=== PATIENT | male | born 1990 | race American Indian/Alaskan Native ===

== ENCOUNTER 2019-02-15 10:18 | Emergency (ER) | payer SELFPAY ==
[2019-02-15] MEDS ORDERED: ZOFRAN IV ONE (10:46)
[2019-02-15] MEDS ORDERED: PEPCID IV ONE (10:46)
[2019-02-15] MEDS ORDERED: NACL 0.9% 1000 ML 1,000 ML IV ONE ×2 (10:46→10:55)
[2019-02-15 10:51] LABS: Basophils % (Auto) 0.4 % (0.0-1.8); Eosinophils # (Auto) 0.1 K/mm3 (0.0-0.4); Eosinophils % (Auto) 0.8 % (0.0-4.3); Hematocrit 45.9 % (35.5-45.6); Hemoglobin 15.3 gm/dl (11.8-15.2); Lymphocytes # (Auto) 1.7 K/mm3 (1.2-5.4); Lymphocytes % (Auto) 19.2 % (13.4-35.0); Mean Corpuscular HGB Conc 33 % (32-34); Mean Corpuscular Volume 80 fl (84-94); Monocytes # (Auto) 0.6 K/mm3 (0.0-0.8); Monocytes % (Auto) 6.2 % (0.0-7.3); Platelet Count 298 K/mm3 (140-440); Red Cell Distribution Width 14.5 % (13.2-15.2)
--- NOTE | 2019-02-15 10:51 | Emergency Department Report ---
HPI - General Chief Complaint: Abdominal Pain Time Seen by Provider: 02/15/19 10:39 - HPI HPI: Room 5 The patient is a 28-year-old male presenting with chief complaint of nausea vomiting. Patient states the past 2-3 days he's had intractable nausea and vomiting. Patient states he's been unable to eat secondary to the nausea and vomiting. The patient states last night he noticed blood-tinged vomitus. Patient denies diarrhea or fever. Patient denies dysuria or sick contacts. The patient states he cannot recall the last thing he had eaten before his symptoms began Location: [See above] Duration: [See above] Quality: [See above] Severity: [See above] Modifying factors: [see above] Context: [see above] Mode of transportation: [not driving] ED Past Medical Hx - Past Medical History Previous Medical History?: No - Surgical History Past Surgical History?: No - Family History Family history: no significant - Social History Smoking Status: Current Every Day Smoker (Black and mild) Substance Use Type: None (denies illicit drug use) - Medications Home Medications: Home Medications Medication Instructions Recorded Confirmed Last Taken Type Metoclopramide [Reglan] 10 mg PO QID PRN #30 tab 02/15/19 Unknown Rx Promethazine [Phenergan] 25 mg [place] Q6HR PRN #5 supp.rect 02/15/19 Unknown Rx ED Review of Systems ROS: Stated complaint: STOMACH PAIN Other details as noted in HPI Constitutional: denies: fever Eyes: denies: eye pain ENT: denies: throat pain Respiratory: no symptoms reported Cardiovascular: denies: chest pain Endocrine: no symptoms reported Gastrointestinal: abdominal pain (soreness), nausea, vomiting. denies: diarrhea Genitourinary: denies: dysuria Musculoskeletal: denies: back pain Neurological: denies: headache Physical Exam - Physical Exam Vital Signs: Vital Signs 02/15/19 10:23 Temperature 98.4 F Pulse Rate 57 L Respiratory 18 Rate Blood Pressure 154/88 O2 Sat by Pulse 96 Oximetry Physical Exam: GENERAL: The patient is well-developed well-nourished male lying on stretcher not appearing to be in acute distress. [] HEENT: Normocephalic. Atraumatic. Extraocular motions are intact. Patient has moist mucous membranes. NECK: Supple. No meningitic signs are noted. Trachea midline CHEST/LUNGS: Clear to auscultation. There is no respiratory distress noted. HEART/CARDIOVASCULAR: Regular. There is no tachycardia. There is no gallop rub or murmur. ABDOMEN: Abdomen is soft, nontender. Patient has normal bowel sounds. There is no abdominal distention. SKIN: There is no rash. There is no edema. There is no diaphoresis. NEURO: The patient is awake, alert, and oriented. The patient is cooperative. The patient has normal speech and gait. MUSCULOSKELETAL: There is no evidence of acute injury. ED Course Vital Signs 02/15/19 10:23 Temperature 98.4 F Pulse Rate 57 L Respiratory 18 Rate Blood Pressure 154/88 O2 Sat by Pulse 96 Oximetry - Reevaluation(s) Reevaluation #1: 02/15/19 12:26 Patient states he still feels nauseous. Will administer Reglan Reevaluation #2: 02/15/19 13:22 Patient states nausea is improved status post Reglan. Will administer po challe nge Reevaluation #3: 02/15/19 13:50 Patient tolerating po and states he feels better ED Medical Decision Making - Lab Data Result diagrams: 02/15/19 10:39 02/15/19 10:39 - Differential Diagnosis gastroenteritis, small bowel obstruction, Critical care attestation.: If time is entered above; I have spent that time in minutes in the direct care of this critically ill patient, excluding procedure time. ED Disposition Clinical Impression: Nausea & vomiting, Dehydration Disposition: DC-01 TO HOME OR SELFCARE Is pt being admited?: No Does the pt Need Aspirin: No Condition: Stable Instructions: Acute Nausea and Vomiting (ED) Additional Instructions: Return to the emergency department immediately should you develop worsening symptoms, fever, inability to tolerate food or liquid or any other concerns. Prescriptions: Promethazine [Phenergan] 25 mg HI Q6HR PRN #5 supp.rect PRN Reason: Vomiting Metoclopramide [Reglan] 10 mg PO QID PRN #30 tab PRN Reason: Nausea Referrals: [facility] [Outside] - 3-5 Days DAKOTA LINO MD [Staff Physician] - 3-5 Days (Dr. Lino is a gastro enterologist. Please follow up with him for further evaluation) Time of Disposition: 13:52
[2019-02-15 11:13] LABS: BUN/Creatinine Ratio 7; Blood Urea Nitrogen 9 mg/dL (9-20); Calcium 9.8 mg/dL (8.4-10.2); Hemolysis Index 21
--- NOTE | 2019-02-15 12:19 | Cat Scan Report ---
CT ABDOMEN AND PELVIS WITH CONTRAST INDICATION / CLINICAL INFORMATION: intractable nausea and vomiting. TECHNIQUE: Axial CT images were obtained through the abdomen and pelvis after IV contrast. All CT scans at this location are performed using CT dose reduction for ALARA by means of automated exposure control. COMPARISON: None available. FINDINGS: LOWER CHEST: No significant abnormality. LIVER: No significant abnormality. GALLBLADDER: No significant abnormality. BILE DUCTS: No significant abnormality. PANCREAS: No significant abnormality. SPLEEN: No significant abnormality. ADRENALS: No significant abnormality. RIGHT KIDNEY and URETER: No significant abnormality. LEFT KIDNEY and URETER: No significant abnormality. STOMACH and SMALL BOWEL: No significant abnormality. COLON: No significant abnormality. APPENDIX: No significant abnormality. PERITONEUM: No free fluid. No free air. No fluid collection. LYMPH NODES: No significant adenopathy. AORTA and ARTERIES: No significant abnormality. IVC and VEINS: No significant abnormality. URINARY BLADDER: No significant abnormality. REPRODUCTIVE ORGANS: No significant abnormality. ADDITIONAL FINDINGS: None. SKELETAL SYSTEM: No significant abnormality. IMPRESSION: 1. No significant abnormality. Signer Name: Hola Mendieta MD Signed: 02/15/2019 12:14 PM Workstation Name: [id number]
[2019-02-15] MEDS ORDERED: REGLAN IV ONE (12:25)
[2019-02-15 14:28] VITALS: BP 112/56
== END 2019-02-15 14:45 | disposition home or self-care (01) ==
LOC: ED 10:18
DX: E86.0 Dehydration (principal); F17.200 Nicotine dependence, unspecified, uncomplicated; R10.9 Unspecified abdominal pain
CPT/HCPCS: 36415; 74177; 80048; 83690; 85025; 96361; 96374; 96375; 99284; J2405; J2765; J7030; Q9967

== ENCOUNTER 2019-02-16 13:04 | Emergency (ER) | payer SELFPAY ==
[2019-02-16 13:19] VITALS: BP 152/85
[2019-02-16 13:46] LABS: Basophils % (Auto) 0.3 % (0.0-1.8); Eosinophils # (Auto) 0.1 K/mm3 (0.0-0.4); Eosinophils % (Auto) 1.2 % (0.0-4.3); Hematocrit 44.4 % (35.5-45.6); Hemoglobin 14.7 gm/dl (11.8-15.2); Lymphocytes # (Auto) 1.9 K/mm3 (1.2-5.4); Lymphocytes % (Auto) 20.2 % (13.4-35.0); Mean Corpuscular HGB Conc 33 % (32-34); Mean Corpuscular Volume 81 fl (84-94); Monocytes # (Auto) 0.7 K/mm3 (0.0-0.8); Monocytes % (Auto) 7.2 % (0.0-7.3); Platelet Count 274 K/mm3 (140-440); Red Blood Count 5.48 M/mm3 (3.65-5.03)
[2019-02-16 13:51] LABS: Bilirubin,Urine NEG (Negative); Blood,Urine NEG (Negative); Color,Urine Amber (Yellow); Mucus,Urine 3+ /HPF
[2019-02-16 13:59] LABS: Alanine Aminotransferase 21 units/L (7-56); Albumin 4.7 g/dL (3.9-5); BUN/Creatinine Ratio 7; Blood Urea Nitrogen 9 mg/dL (9-20); Calcium 9.3 mg/dL (8.4-10.2); Hemolysis Index 7
[2019-02-16] MEDS ORDERED: ZOFRAN IV ONE ×2 (15:43→17:03)
[2019-02-16] MEDS ORDERED: PEPCID IV ONE (15:43)
[2019-02-16] MEDS ORDERED: NACL 0.9% 1000 ML 1,000 ML IV ONE (15:44)
--- NOTE | 2019-02-16 15:49 | Emergency Department Report ---
ED Abdominal Pain HPI - General Chief Complaint: Abdominal Pain Stated Complaint: ABD PAIN Time Seen by Provider: 02/16/19 15:43 Source: patient Mode of arrival: Ambulatory Limitations: No Limitations - History of Present Illness Initial Comments: Mr. Alvarez is a healthy 28-year-old male who is a daily marijuana and tobacco use who presents with heartburn; said nausea and vomiting for 4 days. He was evaluated in our emergency department last night for similar symptoms. Continues to have acid-like illness. Denies fever. Denies concomitant sympto msLiliam CRESPO Complaint: abdominal pain -: Gradual Radiation: chest Severity: moderate Quality: burning Consistency: constant Improves With: nothing Worsens With: nothing Associated Symptoms: nausea, vomiting - Related Data Previous Rx's Medication Instructions Recorded Last Taken Type Metoclopramide [Reglan] 10 mg PO QID PRN #30 tab 02/15/19 Unknown Rx Promethazine [Phenergan] 25 mg [place] Q6HR PRN #5 supp.rect 02/15/19 Unknown Rx Famotidine [Pepcid] 20 mg PO BID 30 Days #60 tablet 02/16/19 Unknown Rx Allergies Allergy/AdvReac Type Severity Reaction Status Date / Time No Known Allergies Allergy Unverified 02/15/19 10:23 ED Review of Systems ROS: Stated complaint: ABD PAIN Other details as noted in HPI Comment: All other systems reviewed and negative Constitutional: denies: fever, malaise Cardiovascular: chest pain Gastrointestinal: abdominal pain ED Past Medical Hx - Past Medical History Previous Medical History?: No - Surgical History Past Surgical History?: No - Social History Smoking Status: Current Every Day Smoker Substance Use Type: Alcohol, Marijuana - Medications Home Medications: Home Medications Medication Instructions Recorded Confirmed Last Taken Type Metoclopramide [Reglan] 10 mg PO QID PRN #30 tab 02/15/19 Unknown Rx Promethazine [Phenergan] 25 mg [place] Q6HR PRN #5 supp.rect 02/15/19 Unknown Rx Famotidine [Pepcid] 20 mg PO BID 30 Days #60 tablet 02/16/19 Unknown Rx ED Physical Exam - General Limitations: No Limitations General appearance: alert, in no apparent distress - Head Head exam: Present: atraumatic, normocephalic - Eye Eye exam: Present: normal appearance - ENT ENT exam: Present: mucous membranes moist - Neck Neck exam: Present: normal inspection, full ROM - Respiratory Respiratory exam: Present: normal lung sounds bilaterally. Absent: respiratory distress - Cardiovascular Cardiovascular Exam: Present: regular rate, normal rhythm, normal heart sounds. Absent: systolic murmur, diastolic murmur, rubs, gallop - GI/Abdominal GI/Abdominal exam: Present: soft, normal bowel sounds. Absent: distended, tenderness, guarding, rebound - Rectal Rectal exam: Present: deferred - Extremities Exam Extremities exam: Present: normal inspection - Back Exam Back exam: Present: normal inspection - Neurological Exam Neurological exam: Present: alert, oriented X3 - Psychiatric Psychiatric exam: Present: normal affect, normal mood - Skin Skin exam: Present: warm, dry, intact, normal color. Absent: rash ED Course Vital Signs 02/16/19 13:17 Temperature 98.4 F Pulse Rate 54 L Respiratory 18 Rate Blood Pressure 152/85 O2 Sat by Pulse 100 Oximetry ED Medical Decision Making - Lab Data Result diagrams: 02/16/19 13:25 02/16/19 13:25 - Medical Decision Making Mr. Alba presents with heartburn and stomach upset: Dehydration with GI fluid loss observed with with increased specific gravity on urinalysis and hypokalemia hypochloremia. CBC chemistry otherwise unremarkable. Diagnosis GERD, and abdomen no hyperemesis syndrome Prescribed famotidine in addition to prescriptions received last night. Receiv ed IV fluid and IV famotidine IV anti-emetic in ED Last night prescribed Reglan and Phenergan suppositories. Critical care attestation.: If time is entered above; I have spent that time in minutes in the direct care of this critically ill patient, excluding procedure time. ED Disposition Clinical Impression: Cannabinoid hyperemesis syndrome, GERD (gastroesophageal reflux disease) Disposition: - TO HOME OR SELFCARE Is pt being admited?: No Does the pt Need Aspirin: No Condition: Stable Prescriptions: Famotidine [Pepcid] 20 mg PO BID 30 Days #60 tablet Referrals: DAKOTA LEDEZMA MD [Staff Physician] - 3-5 Days Forms: Work/School Release Form(ED)
== END 2019-02-16 18:03 | disposition home or self-care (01) ==
LOC: ED 13:04
DX: K21.0 Gastro-esophageal reflux disease with esophagitis (principal); F12.188 Cannabis abuse with other cannabis-induced disorder; F17.200 Nicotine dependence, unspecified, uncomplicated; Z79.899 Other long term (current) drug therapy
CPT/HCPCS: 36415; 80053; 81001; 83690; 85025; 96374; 96375; 96376; 99283; J2405; J7030

== ENCOUNTER 2019-12-16 11:00 | Emergency (ER) | payer SELFPAY ==
[2019-12-16 13:00] LABS: Basophils % (Auto) 0.4 % (0.0-1.8); Eosinophils # (Auto) 0.1 K/mm3 (0.0-0.4); Eosinophils % (Auto) 1.7 % (0.0-4.3); Hematocrit 49.5 % (35.5-45.6); Hemoglobin 16.1 gm/dl (11.8-15.2); Lymphocytes # (Auto) 2.3 K/mm3 (1.2-5.4); Lymphocytes % (Auto) 28.6 % (13.4-35.0); Mean Corpuscular HGB Conc 33 % (32-34); Mean Corpuscular Volume 80 fl (84-94); Monocytes # (Auto) 0.6 K/mm3 (0.0-0.8); Monocytes % (Auto) 7.2 % (0.0-7.3); Platelet Count 332 K/mm3 (140-440); Red Blood Count 6.21 M/mm3 (3.65-5.03); Red Cell Distribution Width 14.4 % (13.2-15.2)
[2019-12-16] MEDS ORDERED: PANTOPRAZOLE 40 MG INJ IV ONE (13:18)
[2019-12-16] MEDS ORDERED: DICYCLOMINE 20 MG/2 ML INJ IM ONE (13:18)
[2019-12-16] MEDS ORDERED: SODIUM CHLORIDE 0.9% 1000 ML 1,000 ML IV ONE (13:18)
[2019-12-16] MEDS ORDERED: METOCLOPRAMIDE 10 MG/2 ML INJ IV ONE (13:18)
[2019-12-16 13:30] LABS: Albumin 4.8 g/dL (3.9-5)
[2019-12-16 13:45] LABS: Bilirubin,Urine NEG (Negative); Blood,Urine NEG (Negative); Color,Urine Yellow (Yellow); Mucus,Urine 3+ /HPF; Protein,Urine <15 mg/dL mg/dL (Negative)
[2019-12-16 13:52] LABS: Alanine Aminotransferase 19 units/L (7-56); BUN/Creatinine Ratio 8; Blood Urea Nitrogen 10 mg/dL (9-20); Calcium 9.7 mg/dL (8.4-10.2); Hemolysis Index 19
--- NOTE | 2019-12-16 14:05 | Emergency Department Report ---
ED N/V/D HPI - General Chief complaint: Abdominal Pain Stated complaint: ABD PAIN Time Seen by Provider: 12/16/19 13:14 Source: patient Mode of arrival: Ambulatory Limitations: No Limitations - History of Present Illness Initial comments: Patient is a 29-year-old male who presents emergency room complaints of nausea, vomiting, diarrhea that began 3 days ago. He states he has some abdominal cramping. He states that 3 days ago he went to a cookout and ate different foods and also smoked marijuana. Patient has been evaluated emergency department on previous occasions for these symptoms and has been diagnosed with cannabinoid hyperemesis but patient states that he smokes marijuana anyways. He denies any fever, urinary symptoms, hematochezia, hematemesis, melena. He denies any sick contacts or recent travel. He denies any other past medical h istory or allergies to medications. - Related Data Previous Rx's Medication Instructions Recorded Last Taken Type Metoclopramide [Reglan] 10 mg PO QID PRN #30 tab 02/15/19 Unknown Rx Promethazine [Phenergan] 25 mg [place] Q6HR PRN #5 supp.rect 02/15/19 Unknown Rx Famotidine [Pepcid] 20 mg PO BID 30 Days #60 tablet 02/16/19 Unknown Rx Hyoscyamine Subl [Levsin Sl 0.125 0.125 mg SL Q6HR PRN #10 tab 12/16/19 Unknown Rx TAB] Ondansetron [Zofran Odt] 4 mg PO Q8HR PRN #10 tab.rapdis 12/16/19 Unknown Rx Allergies Allergy/AdvReac Type Severity Reaction Status Date / Time No Known Allergies Allergy Verified 12/16/19 11:26 ED Review of Systems ROS: Stated complaint: ABD PAIN Other details as noted in HPI Comment: All other systems reviewed and negative ED Past Medical Hx - Past Medical History Previous Medical History?: No - Surgical History Past Surgical History?: Yes Additional Surgical History: left ankle - Social History Smoking Status: Current Every Day Smoker Substance Use Type: Alcohol, Marijuana - Medications Home Medications: Home Medications Medication Instructions Recorded Confirmed Last Taken Type Metoclopramide [Reglan] 10 mg PO QID PRN #30 tab 02/15/19 Unknown Rx Promethazine [Phenergan] 25 mg [place] Q6HR PRN #5 supp.rect 02/15/19 Unknown Rx Famotidine [Pepcid] 20 mg PO BID 30 Days #60 tablet 02/16/19 Unknown Rx Hyoscyamine Subl [Levsin Sl 0.125 0.125 mg SL Q6HR PRN #10 tab 12/16/19 Unknown Rx TAB] Ondansetron [Zofran Odt] 4 mg PO Q8HR PRN #10 tab.rapdis 12/16/19 Unknown Rx ED Physical Exam - General Limitations: No Limitations General appearance: alert, in no apparent distress - Head Head exam: Present: atraumatic, normocephalic - Eye Eye exam: Present: normal appearance - ENT ENT exam: Present: mucous membranes dry (mildly) - Respiratory Respiratory exam: Present: normal lung sounds bilaterally. Absent: respiratory distress, wheezes, rales, rhonchi, stridor, chest wall tenderness, accessory muscle use, decreased breath sounds, prolonged expiratory - Cardiovascular Cardiovascular Exam: Present: regular rate, normal rhythm, normal heart sounds. Absent: systolic murmur, diastolic murmur, rubs, gallop - GI/Abdominal GI/Abdominal exam: Present: soft, normal bowel sounds. Absent: distended, tenderness, guarding, rebound, rigid - Neurological Exam Neurological exam: Present: alert, oriented X3 - Psychiatric Psychiatric exam: Present: normal affect, normal mood - Skin Skin exam: Present: warm, dry, intact ED Course Vital Signs 12/16/19 12/16/19 11:25 16:25 Temperature 98.6 F Pulse Rate 90 85 Respiratory 19 20 Rate Blood Pressure 155/93 172/104 O2 Sat by Pulse 96 97 Oximetry ED Medical Decision Making - Lab Data Result diagrams: 12/16/19 11:51 12/16/19 11:51 Lab Results 12/16/19 12/16/19 12/16/19 Range/Units 11:43 11:51 11:51 WBC 8.2 (4.5-11.0) K/mm3 RBC 6.21 H (3.65-5.03) M/mm3 Hgb 16.1 H (11.8-15.2) gm/dl Hct 49.5 H (35.5-45.6) % MCV 80 L (84-94) fl MCH 26 L (28-32) pg MCHC 33 (32-34) % RDW 14.4 (13.2-15.2) % Plt Count 332 (140-440) K/mm3 Lymph % (Auto) 28.6 (13.4-35.0) % [place] % (Auto) 7.2 (0.0-7.3) % Eos % (Auto) 1.7 (0.0-4.3) % Baso % (Auto) 0.4 (0.0-1.8) % Lymph # 2.3 (1.2-5.4) K/mm3 [place] # 0.6 (0.0-0.8) K/mm3 Eos # 0.1 (0.0-0.4) K/mm3 Baso # 0.0 (0.0-0.1) K/mm3 Seg Neutrophils % 62.1 (40.0-70.0) % Seg Neutrophils # 5.1 (1.8-7.7) K/mm3 Sodium 141 (137-145) mmol/L Potassium 3.7 (3.6-5.0) mmol/L Chloride 98.6 (98-107) mmol/L Carbon Dioxide 23 (22-30) mmol/L Anion Gap 23 mmol/L BUN 10 (9-20) mg/dL Creatinine 1.3 (0.8-1.5) mg/dL Estimated GFR > 60 ml/min BUN/Creatinine Ratio 8 % Glucose 103 H (75-100) mg/dL Calcium 9.7 (8.4-10.2) mg/dL Total Bilirubin 0.50 (0.1-1.2) mg/dL AST 17 (5-40) units/L ALT 19 (7-56) units/L Alkaline Phosphatase 101 (35-129) units/L Total Protein 8.1 (6.3-8.2) g/dL Albumin 4.8 (3.9-5) g/dL Albumin/Globulin Ratio 1.5 % Lipase 39 (13-60) units/L Urine Color Yellow (Yellow) Urine Turbidity Clear (Clear) Urine pH 6.0 (5.0-7.0) Ur Specific [place] 1.029 (1.003-1.030) Urine Protein <15 mg/dl (Negative) mg/dL Urine Glucose (UA) Neg (Negative) mg/dL Urine Ketones Tr (Negative) mg/dL Urine Blood Neg (Negative) Urine Nitrite Neg (Negative) Urine Bilirubin Neg (Negative) Urine Urobilinogen 2.0 (<2.0) mg/dL Ur Leukocyte Esterase Sm (Negative) Urine WBC (Auto) 39.0 H (0.0-6.0) /HPF Urine RBC (Auto) 4.0 (0.0-6.0) /HPF U Epithel Cells (Auto) 1.0 (0-13.0) /HPF Urine Mucus 3+ /HPF - Medical Decision Making Patient is a 29-year-old male who presents emergency room complaints of nausea, vomiting, diarrhea that began 3 days ago. He states he has some abdominal cramping. He states that 3 days ago he went to a cookout and ate different foods and also smoked marijuana. Patient has been evaluated emergency department on previous occasions for these symptoms and has been diagnosed with cannabinoid hyperemesis but patient states that he smokes marijuana anyways. He denies any fever, urinary symptoms, hematochezia, hematemesis, melena. He denies any sick contacts or recent travel. He denies any other past medical history or allergies to medications. On exam mildly dry mucous membranes, no abdominal tenderness to palpation, no guarding, no rebound, no rigidity, no peritoneal signs. Labs are normal. UA shows white blood cells and leukocyte esterase. Patient is not experiencing urinary symptoms, he denies any testicular edema or pain. Will cover patient for STD with ceftriaxone and azithromycin and discussed to follow-up with the health department or another clinic for full STD panel. Patient given 1 L IV fluids, Reglan, Bentyl, Proton ix and symptoms improved and patient was feeling much better and able to tolerate p.o. intake. Symptoms most likely consistent with gastroenteritis or cannabinoid hyperemesis syndrome. Discussed in detail with patient to discontinue marijuana use. Patient given prescription for Levsin and Zofran. Advised patient Please take medication as prescribed as needed. Increase your fluid intake over the next several days. Eat a bland diet and began with liquids and then slowly advance your diet as tolerated. Avoid anything sugary or greasy. Please go to the health department or another clinic for full STD panel. Please have any partner tested and treated as well. Avoid sexual intercourse. Please follow-up with a primary care doctor and a GI doctor. Return to the emergency room for any new or worsening symptoms. Please stop marijuana use as this can precipitate nausea and vomiting. - Differential Diagnosis Gastroenteritis, pancreatitis, cholecystitis, PUD, GERD, cannabinoid hypere Critical care attestation.: If time is entered above; I have spent that time in minutes in the direct care of this critically ill patient, excluding procedure time. ED Disposition Clinical Impression: Nausea vomiting and diarrhea, Marijuana use, Bacteriuria, Concern about STD in male without diagnosis Disposition: DC- TO HOME OR SELFCARE Is pt being admited?: No Does the pt Need Aspirin: No Condition: Stable Instructions: Sexually Transmitted Diseases (ED), Safe Sex (ED), Gastroenteritis (ED) Additional Instructions: Please take medication as prescribed as needed. Increase your fluid intake over the next several days. Eat a bland diet and began with liquids and then slowly advance your diet as tolerated. Avoid anything sugary or greasy. Please go to the health department or another clinic for full STD panel. Please have any partner tested and treated as well. Avoid sexual intercourse. Please follow-up with a primary care doctor and a GI doctor. Return to the emergency room for any new or worsening symptoms. Please stop marijuana use as this can precipitate nausea and vomiting. Prescriptions: Hyoscyamine Subl [Levsin Sl 0.125 TAB] 0.125 mg SL Q6HR PRN #10 tab PRN Reason: abdominal cramping/diarrhea Ondansetron [Zofran Odt] 4 mg PO Q8HR PRN #10 tab.rapdis PRN Reason: Nausea And Vomiting Referrals: MARCO A DESOUZA MD [Staff Physician] - 3-5 Days [facility] [Provider Group] - 3-5 Days [facility] [Outside] - 3-5 Days [facility] [Provider Group] - 3-5 Days Forms: Work/School Release Form(ED) Time of Disposition: 16:10 Print Language: CROATIAN
[2019-12-16] MEDS ORDERED: LIDOCAINE-MPF (1%) 10 MG/1 ML VIAL 5 ML INFILTRATI ONE (14:27)
[2019-12-16] MEDS ORDERED: AZITHROMYCIN 250 MG TAB PO ONE (14:27)
[2019-12-16 16:29] VITALS: BP 172/104
== END 2019-12-16 16:35 | disposition home or self-care (01) ==
LOC: ED 11:00
DX: R11.2 Nausea with vomiting, unspecified (principal); R19.7 Diarrhea, unspecified; R82.71 Bacteriuria; F12.90 Cannabis use, unspecified, uncomplicated; Z79.899 Other long term (current) drug therapy
CPT/HCPCS: 36415; 80053; 81001; 83690; 85025; 87086; 96361; 96372; 96374; 96375; 99283; C9113; J0500; J0696; J2765; J7030